=== PATIENT | male | born 1980 | race American Indian/Alaskan Native ===

== ENCOUNTER 2021-02-13 17:12 | Emergency (ER) | payer SELFPAY ==
[2021-02-13] MEDS ORDERED: ZIPRASIDONE MESYLATE 20 MG VIAL IM ONE (17:14)
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
[2021-02-13 17:44] LABS: Basophils # (Auto) 0.1 K/mm3 (0.0-0.1); Basophils % (Auto) 1.5 % (0.0-1.8); Eosinophils % (Auto) 0.8 % (0.0-4.3); Hematocrit 39.1 % (35.5-45.6); Hemoglobin 12.3 gm/dl (11.8-15.2); Lymphocytes # (Auto) 1.6 K/mm3 (1.2-5.4); Lymphocytes % (Auto) 41.8 % (13.4-35.0); Mean Corpuscular HGB Conc 32 % (32-34); Mean Corpuscular Volume 87 fl (84-94); Monocytes # (Auto) 0.6 K/mm3 (0.0-0.8); Monocytes % (Auto) 14.4 % (0.0-7.3); Platelet Count 179 K/mm3 (140-440); Red Blood Count 4.49 M/mm3 (3.65-5.03); Red Cell Distribution Width 12.4 % (13.2-15.2)
[2021-02-13 18:00] LABS: BUN/Creatinine Ratio 21; Blood Urea Nitrogen 23 mg/dL (9-20); Calcium 8.8 mg/dL (8.4-10.2); Hemolysis Index 29
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
[2021-02-14] MEDS ORDERED: MELATONIN 5 MG TAB PO PRN (10:48)
[2021-02-14] MEDS: DIVALPROEX DR 125 MG TAB PO SCH ×2 (11:06→22:25)
--- NOTE | 2021-02-14 13:07 | Emergency Department Report ---
Blank Doc - Documentation Documentation: 40-year-old male with bipolar disorder and PTSD presents to the hospital suici eric ideation. Chart and nurses notes reviewed. No events overnight. 1013 continued after mental health evaluation and oral medications initiated
--- NOTE | 2021-02-15 09:33 | Progress Note ---
Subjective - Reason for Consult Consult date: 02/15/21 Reason for consult: agitation, SI - Chief Complaint Chief complaint: The patient was seen today. He is still agitated. He is talking fast, and states he doesn't know why he's still here. When telling the patient about his impulsive ways, he says "she's my trigger. I'm staying away from her until she gets help." After talking to the nursing staff about the patient, they said the patient is agitated every time they go in the room, even if it's just to take a food tray. REVIEW OF SYSTEMS Constitutional: Negative for weight loss ENT: Negative for stridor Respiratory: Negative for cough or hemoptysis All other systems reviewed and are negative MENTAL STATUS EXAMINATION General Appearance and Behavior: Age appropriate, good hygiene, wearing a ppropriate clothes. irritable, agitated Cooperation: Cooperative Psychomotor Behavior: Psychomotor normal Mood: irritable, upset Affect and affective range: congruent with stated mood Thought Process: goal directed Thought Content: Denies Speech: Increased tone and pace Suicidal Ideation: Denies, but had a suicidal attempt Homicidal Ideation: Denies Hallucinations: Denies Delusions: None elicited Impulse Control: poor Insight and Judgment: poor insight and fair judgment Memory: Limited Attention: Attentive Orientation: a/o x 3 Assessment (1) Bipolar Disorder Treatment Plan [address] 250mg po BID Increase Vistaril 50mg po BID Melatonin 5mg po qhs prn insomnia Disposition: Recommend acute psychiatric inpatient treatment Will follow. Thanks Case staffed with Dr. Barry Mental Status Exam - Vital signs Last Vital Signs Temp 98.1 F 02/14/21 09:00 Pulse 69 02/14/21 09:00 Resp 16 02/14/21 09:00 BP 92/68 02/14/21 09:00 Pulse Ox 99 02/14/21 09:10
--- NOTE | 2021-02-15 11:23 | Event Note ---
Date: 02/15/21 Patient is still agitated and showing acute psychosis. Vital signs stable. Labs reviewed and is unremarkable except for COVID-19 positive. Waiting for psychiatric inpatient admission.
[2021-02-15] MEDS: DIVALPROEX DR 250 MG TAB PO SCH ×2 (19:17→22:15)
[2021-02-16] MEDS: DIVALPROEX DR 250 MG TAB PO SCH ×3 (10:15→22:14)
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
--- NOTE | 2021-02-16 11:37 | Emergency Department Report ---
Blank Doc - Documentation Documentation: 40-year-old male on 1013 for suicidal ideation. Patient is refusing to take o ral psychiatric medications. I requested for allergies to be placed to chart if available. Patient is awaiting mental health placement. Covid positive. Pt told nurse that the medications "mess up his stomach". Phenergan and Maalox ordered as needed for GI symptoms and efforts to increase compliance.
[2021-02-16] MEDS ORDERED: ALUM-MAG HYDROXIDE-SIMETHICONE 200-200-20MG/5ML ORAL LIQD 30 ML PO PRN (11:39)
[2021-02-16] MEDS ORDERED: PROMETHAZINE 25 MG TAB PO PRN (11:39)
[2021-02-16] MEDS ORDERED: ZIPRASIDONE MESYLATE 20 MG VIAL IM PRN (12:00)
[2021-02-16] MEDS: risperiDONE 1 MG TAB PO SCH ×2 (14:50→22:14)
[2021-02-17 04:43] VITALS: BP 108/71
[2021-02-17] MEDS: DIVALPROEX DR 250 MG TAB PO SCH (10:12)
[2021-02-17] MEDS: risperiDONE 1 MG TAB PO SCH (10:12)
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
--- NOTE | 2021-02-17 12:33 | Emergency Department Report ---
Blank Doc - Documentation Documentation: Patient feels better this morning. He is not suicidal homicidal. He is not d elusional. There is no evidence of acute psychosis. Patient seems to be cleared from a psychiatric perspective for discharge. Psychiatric services agrees. He has been given outpatient referral and resources.
== END 2021-02-17 14:25 | disposition home or self-care (01) ==
LOC: ED 17:12
DX: U07.1 COVID-19 (principal); R45.851 Suicidal ideations; F12.90 Cannabis use, unspecified, uncomplicated; F43.10 Post-traumatic stress disorder, unspecified; Z79.899 Other long term (current) drug therapy
CPT/HCPCS: 80048; 85025; 99284; J3486; Q0177; U0003; 80320; G0480